=== PATIENT | male | born 1995 | race Two or more races ===

== ENCOUNTER 2018-12-10 02:37 | Emergency (ER) | payer BC, MEDICAID ==
[~2018-12-10] VITALS: Ht 170.2 cm; Wt 81.6 kg
--- NOTE | 2018-12-10 02:50 | NUR ---
Pt. ambulated into ED w/ c/o SI for 2 days d/t recent breakup w/ gf, pt. lives at [facility], pt. states he drank a large bottle of Vodka tonight and appears intoxicted w/ slowed reactions and slow/slurred speech, denies AH/VH, has agreed to a verbal no suicide contract, all pt. needs meet,
--- NOTE | 2018-12-10 03:00 | NUR ---
Art LABORER STORES notified of pt.,
--- NOTE | 2018-12-10 03:05 | NUR ---
Senior Science Consultant at bedside for lab draw,
--- NOTE | 2018-12-10 03:14 | NUR ---
Pt. up to void, ambulated w/ steady gait, urine specimen collected and sent to lab,
[2018-12-10 03:30] LABS: ETHANOL 173 MG/DL (0-0)
[2018-12-10 03:33] LABS: ALANINE AMINOTRANSFERASE 34 U/L (16-63); ALKALINE PHOSPHATASE 80 U/L (50-136); ASPARTATE AMINOTRANSFERASE 25 U/L (15-37); BILIRUBIN,DIRECT 0.1 mg/dL (0.0-0.2); BILIRUBIN,TOTAL 0.4 mg/dL (0.2-1.0); CARBON DIOXIDE 29 mmol/L (21-32); CHLORIDE 104 mmol/L (98-107); CREATININE 0.8 mg/dL (0.6-1.3); GLUCOSE 110 mg/dL (74-106); POTASSIUM 4.3 mmol/L (3.5-5.1); TOTAL PROTEIN, SERUM 8.6 g/dL (6.4-8.2); UREA NITROGEN, BLOOD 13 mg/dL (7-18)
[2018-12-10 03:34] LABS: BASOPHILS # (AUTO) 0.1 K/uL (0.0-8.0); BASOPHILS % (AUTO) 0.5 % (0.0-2.0); EOSINOPHILS # (AUTO) 0.1 K/uL (0.0-0.7); EOSINOPHILS % (AUTO) 1.1 % (0.0-7.0); HEMATOCRIT 51.9 % (36.7-47.1); HEMOGLOBIN 18.1 g/dL (12.5-16.3); LYMPHOCYTES # (AUTO) 1.8 K/uL (20.0-40.0); LYMPHOCYTES % (AUTO) 16.1 % (20.5-51.5); MEAN CORPUSCULAR HEMOGLOBIN 30.8 uug (23.8-33.4); MEAN CORPUSCULAR HGB CONC 35 g/dL (32.5-36.3); MEAN CORPUSCULAR VOLUME 88.5 fL (73.0-96.2); MONOCYTES # (AUTO) 0.5 K/uL (2.0-10.0); MONOCYTES % (AUTO) 4.1 % (0.0-11.0); NEUTROPHILS # (AUTO) 8.8 K/uL (1.8-8.9); NEUTROPHILS % (AUTO) 78.2 % (38.5-71.5); PLATELET COUNT (AUTO) 279 K/uL (152-348); RED BLOOD CELL COUNT(AUTO) 5.86 MIL/uL (4.06-5.63); WHITE BLOOD COUNT (AUTO) 11.3 K/uL (3.6-10.2)
[2018-12-10 03:47] LABS: *BILIRUBIN,URIN NEGATIVE (NEGATIVE); *BLOOD, URINE NEGATIVE (NEGATIVE); *CLARITY,URINE CLEAR (CLEAR); *COLOR,URINE YELLOW (YELLOW); *KETONES,URINE NEGATIVE (NEGATIVE); *UROBILINOGEN,URINE 0.2 E.U./dl (NORMAL); LEUKOCYTE ESTERASE ,URINE NEGATIVE (NEGATIVE); NITRITE, URINE NEGATIVE (NEGATIVE); PH,URINE 5.5 (5.0-8.0); UGLUCOSE NEGATIVE (NEGATIVE)
[2018-12-10 04:09] LABS: BACTERIA,URINE FEW /HPF (NONE SEEN); MUCUS,URINE MODERATE /LPF (0-FEW); RBC,URINE 0-3 /HPF (0-3); SQUAMOUS EPITHELIAL CELL,UR FEW /HPF (NONE SEEN)
[2018-12-10 04:12] LABS: *AMPHETAMINE, URINE NEGATIVE (NEGATIVE); *BARBITURATE, URINE NEGATIVE (NEGATIVE); *CANNABINOID, URINE NEGATIVE (NEGATIVE); *COCCAINE, URINE NEGATIVE (NEGATIVE); *OPIATE, URINE NEGATIVE (NEGATIVE); *PHENCYCLIDINE SCREEN,URINE NEGATIVE (NEGATIVE)
--- NOTE | 2018-12-10 04:13 | NUR ---
Per Art TRIM OPERATOR pt. too intoxicated for crisis evaluation per urine toxicology, will endorse to [facility] Crisis Cattery Operator @ 0800
[2018-12-10 04:31] LABS: ACETAMINOPHEN < 2.0 ug/mL (10-30)
--- NOTE | 2018-12-10 04:51 | NUR ---
Pt. resting in bed, w/ eyes closed, NAD
--- NOTE | 2018-12-10 06:38 | NUR ---
Pt. resting in bed w/ eyes closed, NAD, VSS, awaiting alcohol metabolization to endorse to dayshift nurse,
--- NOTE | 2018-12-10 06:50 | NUR ---
Report given to Vania FOLEY, care endorsed
--- NOTE | 2018-12-10 07:30 | NUR ---
PATIENT IS ASLEEP, AROUSES EASILY...
--- NOTE | 2018-12-10 08:53 | NUR ---
MAURA FOLEY FROM CRISIS TEAM TO ARRIVE FOR EVAL TODAY. PATIENT IS SLEEPING, AWAKES EASILY....
--- NOTE | 2018-12-10 10:11 | NUR ---
MAURA RN FROM CRISIS TEAM HERE SPEAKING TO PATIENT. PATIENT ATE BREAKFAST, DRANK WATER AND USED THE BATHROOM EARLIER.
--- NOTE | 2018-12-10 11:01 | NUR ---
DC AND FOLLOW UP INSTRUCTIONS GIVEN AND EXPLAINED TO PATIENT WHO STATES HE UNDERSTANDS ALL INSTRUCTIONS. SOMEONE FROM [facility] IS ON THEIR WAY TO PICK HIM UP....
[2018-12-10 11:02] VITALS: BP 117/70
== END 2018-12-10 11:03 | disposition home or self-care (01) ==
LOC: ER 02:40
DX: R45.851 Suicidal ideations (principal); F10.10 Alcohol abuse, uncomplicated; F32.9 Major depressive disorder, single episode, unspecified; Y90.6 Blood alcohol level of 120-199 mg/100 ml
CPT/HCPCS: 36415; 80048; 80076; 80307; 81001; 85025; 99284; G0480 ×2; G0481; A4663

== ENCOUNTER 2020-01-11 08:13 | Emergency (ER) | payer BC, MEDICAID ==
[~2020-01-11] VITALS: Ht 172.7 cm; Wt 79.4 kg
--- NOTE | 2020-01-11 08:27 | NUR ---
PT IS IN ROOM #1B. DR ZUNIGA EVALUATED THE PT. PT IS RESTING IN BED COMFORTABLY. BREAKFAST WAS PROVIDED BY PT's REQUEST. CONTINUE TO MONITOR THE PT.
[2020-01-11 09:12] LABS: BASOPHILS % (AUTO) 0.3 % (0.0-2.0); EOSINOPHILS # (AUTO) 0.3 K/uL (0.0-0.7); HEMATOCRIT 47.6 % (36.7-47.1); HEMOGLOBIN 16.4 g/dL (12.5-16.3); LYMPHOCYTES # (AUTO) 1.4 K/uL (20.0-40.0); LYMPHOCYTES % (AUTO) 9.4 % (20.5-51.5); MEAN CORPUSCULAR HEMOGLOBIN 30.5 uug (23.8-33.4); MEAN CORPUSCULAR HGB CONC 34 g/dL (32.5-36.3); MEAN CORPUSCULAR VOLUME 88.9 fL (73.0-96.2); MONOCYTES # (AUTO) 1.1 K/uL (2.0-10.0); MONOCYTES % (AUTO) 7.3 % (0.0-11.0); NEUTROPHILS # (AUTO) 11.8 K/uL (1.8-8.9); PLATELET COUNT (AUTO) 302 K/uL (152-348); RED BLOOD CELL COUNT(AUTO) 5.36 MIL/uL (4.06-5.63); WHITE BLOOD COUNT (AUTO) 14.6 K/uL (3.6-10.2)
[2020-01-11 09:23] LABS: ALANINE AMINOTRANSFERASE 25 U/L (16-63); ALKALINE PHOSPHATASE 77 U/L (50-136); ASPARTATE AMINOTRANSFERASE 19 U/L (15-37); BILIRUBIN,DIRECT 0.1 mg/dL (0.0-0.2); BILIRUBIN,TOTAL 0.4 mg/dL (0.2-1.0); CARBON DIOXIDE 35 mmol/L (21-32); CHLORIDE 104 mmol/L (98-107); CREATININE 0.8 mg/dL (0.6-1.3); GLUCOSE 90 mg/dL (74-106); POTASSIUM 4.1 mmol/L (3.5-5.1); TOTAL PROTEIN, SERUM 8.1 g/dL (6.4-8.2); UREA NITROGEN, BLOOD 9 mg/dL (7-18)
[2020-01-11 09:24] LABS: ACETAMINOPHEN < 2.0 ug/mL (10-30); ETHANOL 30 MG/DL (0-0)
[2020-01-11 09:25] LABS: *BILIRUBIN,URIN NEGATIVE (NEGATIVE); *BLOOD, URINE NEGATIVE (NEGATIVE); *CLARITY,URINE SLIGHTLY CLOUDY (CLEAR); *COLOR,URINE YELLOW (YELLOW); *KETONES,URINE NEGATIVE (NEGATIVE); LEUKOCYTE ESTERASE ,URINE NEGATIVE (NEGATIVE); NITRITE, URINE NEGATIVE (NEGATIVE); UGLUCOSE NEGATIVE (NEGATIVE)
[2020-01-11 09:38] LABS: BACTERIA,URINE FEW /HPF (NONE SEEN); MUCUS,URINE MODERATE /LPF (0-FEW); RBC,URINE NONE SEEN /HPF (0-3); SQUAMOUS EPITHELIAL CELL,UR FEW /HPF (NONE SEEN); WBC,URINE 0-3 /HPF (0-3)
[2020-01-11 09:48] LABS: *AMPHETAMINE, URINE NEGATIVE (NEGATIVE); *BARBITURATE, URINE NEGATIVE (NEGATIVE); *CANNABINOID, URINE POSITIVE (NEGATIVE); *COCCAINE, URINE NEGATIVE (NEGATIVE); *OPIATE, URINE NEGATIVE (NEGATIVE); *PHENCYCLIDINE SCREEN,URINE NEGATIVE (NEGATIVE)
--- NOTE | 2020-01-11 11:07 | NUR ---
AVIONICS ENGINEER BRITTNY WAS ASSIGNED TO EVALUATE THE PT. PT WAS EVALUATED BY AVIONICS ENGINEER SHAKEH.
--- NOTE | 2020-01-11 12:23 | NUR ---
11:45am: Internal Controls Manager Consultation: This SW met with patient, who was in his assigned ED bed, watching TV. Patient was receptive with talking to this SW. Patient is a 24 year old male, who came in to the ED on his own today due to feelings of depression and thoughts of suicide. Patient is alert, oriented x 4, cooperative with this SW, and engaged in this interview with this SW. Patient states he has a history of Major Depression and takes Lexapro. Patient also reports hx of alcohol use, along with marijuana and cocaine use, on and off for the past 8 years. Patient states not having been in any substance abuse treatment program in the past. Patient states he has been feeling more depressed then usual for the past 2-3 days because he lost a friend to a drug overdose last week. Patient stated he had thoughts of overdosing on drugs earlier today, however he did not attempt it and came to the ED for help. SW commended the patient for seeking out help, and provided him with some supportive counseling. Hx of psychiatric hospitalization in the past. SW discussed voluntary psychiatric hospitalization for current depression and suicidal thoughts, and patient expressed agreement. Patient's demographics on his face sheet were verified, and patient stated that the address listed on the face sheet is correct: [address] [place] [id number]. However, patient stated that he was currently living in transitional housing in [facility]. SW asked patient if he wanted to contact a family member or if he wanted SW to contact family for him, and patient agreed that he would call kelli mother, who is listed on the face sheet: Yolanda Ott [phone]. OG Costa provided patient with a hospital phone in order for him to contact his mother. At this time, SW will work on inpatient psychiatric placement for the patient.
--- NOTE | 2020-01-11 12:35 | NUR ---
12:09pm: ZOE called [facility] and spoke with Emile in Intake [phone]. Patient's case was discussed with Emile via telephone, and Emile asked this SW to fax patient's medical records to him at [phone]. Emile stated that they are waiting for all their daily discharges to finalize before stating which location ([place] or [place]) will have a bed available for the patient. ZOE expressed understanding and stated that she will fax over the requested medical records soon. ZOE also provided Emile with her call back numbers in order for Emile to contact this SW with information regarding admission to [facility].
--- NOTE | 2020-01-11 13:31 | NUR ---
ZOE faxed patient's medical records (ED physician's notes, face sheet, labs, and ED summary report) to Emile at [facility] (fax #[phone] ; tel # [phone]). Patient waiting to hear from Emile regarding admission to [facility] inpatient psychiatric unit. ED RN Igor moss.
--- NOTE | 2020-01-11 13:46 | NUR ---
NEUROPHYSIOLOGICAL TECHNICIAN BRITTNY CONTACTED TO [facility] FOR VOLUNTARY PT's PLACEMENT TO MENTAL HEALTH UNIT.
--- NOTE | 2020-01-11 14:32 | NUR ---
BREAKFAST AND LUNCH WERE PROWIDED TO THE PT. PT IS RESTING COMFORTABLY IN THE BED #1B NOW. CONTINUE TO MONITOR THE PT.
--- NOTE | 2020-01-11 15:01 | NUR ---
2:55pm: ZOE followed up with Emile at [facility] [phone] regarding the referral that this SW faxed earlier today (see previous SS note). Emile confirmed receipt and stated that it was currently being reviewed for admission. Emile stated that they would contact this SW soon with further instructions. ZOE provided this updates to ED OG Costa.
--- NOTE | 2020-01-11 17:34 | NUR ---
PERFORMANCE MAKEUP ARTIST BRITTNY CALLED WIT INFORMATION UPDATE. ACCORDING TO [facility] HARD HAT DIVER MARYAN ) PT IS GOING TO BE ADMITTED TO [facility] MENTAL HEALTH UNIT. [facility] INTAKE DEPARTMENT ([phone]) IS GOING TO CONTACT [facility] ER WITH TRANSFER INFORMATION.
--- NOTE | 2020-01-11 17:39 | NUR ---
5:20pm: ZOE followed up with Emile at [facility] [phone] regarding status for patient's admission. Emile contacted the Intake department at [facility] and was told that patient's [employer] insurance was [employer], and that the intake department was referring patient to [facility]. While ZOE was on the phone, Emile contacted [facility] and was informed by their intake department that they did not have any beds available for today. Emile then contacted their Administration, and was told that due to the current state of [facility] emergency, that [facility] can take a patient with a [employer] insurance. Emile then called his intake department back at [facility], and confirmed with them that patient will be accepted at [address] [address]. ZOE provided Emile with the phone number to the ED and the name of the assigned RN (Igor). ZOE instructed Emile to contact Igor for report and transfer instructions. Emile expressed understanding and agreement. ZOE informed RN Igor of above, who expressed understanding.
--- NOTE | 2020-01-11 19:04 | NUR ---
REPORT WAS GIVEN TO PAINTING SUPERVISOR OG MARIN.
--- NOTE | 2020-01-11 20:35 | NUR ---
Per pt, has plan "to kill himself by overdosing on meds"
--- NOTE | 2020-01-11 20:38 | NUR ---
Called [facility], spoke with Tika, provided transfer information, Accepting MD is Dr. Allen, number to report to , [address] at [facility] [place]
--- NOTE | 2020-01-11 20:55 | NUR ---
Called [facility], trip#[id number], eta 45min-1 hour ~2200. Spoke with Raymon.
--- NOTE | 2020-01-11 21:13 | NUR ---
Report given to Brissa FOLEY, [facility].
--- NOTE | 2020-01-11 21:34 | NUR ---
[facility] arrived to ER to transport patient to [facility], report and documenation given to EMT.
== END 2020-01-11 21:36 | disposition short-term general hospital (02) ==
LOC: ER 08:13
DX: F32.9 Major depressive disorder, single episode, unspecified (principal); Z87.891 Personal history of nicotine dependence; Z79.899 Other long term (current) drug therapy
CPT/HCPCS: 36415; 80048; 80076; 80307; 81000; 81001; 85025; 99285; G0480 ×2; G0481; A4663